=== PATIENT | female | born 1985 | race Caucasian/White ===

== ENCOUNTER 2018-10-27 06:08 | Inpatient (IN) | payer OTHER ==
[~2018-10-27] VITALS: Ht 165.1 cm; Wt 58.6 kg
[2018-10-27] VITALS (9 sets, daily range): BP systolic 104–116; BP diastolic 72–83; Ht 165.1 cm; Wt 58.6 kg
[2018-10-27] MEDS ORDERED: NOVOLIN 70/30 110 ML SC (06:17)
--- NOTE | 2018-10-27 06:25 | NUR ---
POC GLUCOSE 399
[2018-10-27 06:36] LABS: APPEARANCE HAZY (CLEAR); BILIRUBIN NEGATIVE (NEGATIVE); COLOR YELLOW (YELLOW); GLUCOSE 1000 mg/dL (NEGATIVE); KETONE MODERATE mg/dL (NEGATIVE); NITRITE NEGATIVE (NEGATIVE); PROTEIN NEGATIVE (NEGATIVE); SPECIFIC GRAVITY 1.015 (1.005-1.020); UROBILINOGEN NORMAL (NORMAL)
[2018-10-27 07:03] LABS: KETONE - SERUM SMALL mg/dL (NEGATIVE)
[2018-10-27 07:08] LABS: ALKALINE PHOSPHATASE 77 U/L (46-116); ALT (SGPT) 20 U/L (10-68); BILIRUBIN - TOTAL 0.48 mg/dL (0.2-1.3); CALC OSMOLALITY 282 mosm/kg (275-300); CALCIUM 9.2 mg/dL (8.5-10.1); CARBON DIOXIDE 22.4 mmol/L (21.0-32.0); CHLORIDE - SERUM 99 mmol/L (98-107); CREATININE - SERUM 0.7 mg/dL (0.6-1.3); GLUCOSE 368 mg/dL (74-106); POTASSIUM - SERUM 3.6 mmol/L (3.5-5.1); PROTEIN - SERUM 7.7 g/dL (6.4-8.2); SODIUM 134 mmol/L (136-145); UREA NITROGEN 12 mg/dL (7-18); eGFR NON AFRICAN AMERICAN > 90 mL/min (90-120)
[2018-10-27 07:14] LABS: EOSINOPHILS 5.2 % (0-7); HEMATOCRIT 43.7 % (36.0-48.0); HEMOGLOBIN 16.2 g/dL (12-16); IMMATURE GRANULOCYTES 0.3 % (0-5); LYMPHOCYTES 16.4 % (15-50); MCH 33.3 pg (26.0-34.0); MCHC 37.1 g/dL (31.0-37.0); MCV 89.9 fL (80.0-100.0); MONOCYTES 5.2 % (2-11); NEUTROPHILS 71.9 % (40-80); PLATELET COUNT 305 10x3/uL (130-400); RBC 4.86 10x6/uL (4.00-5.40); RDW 11.8 % (11.5-14.5); WBC 6.9 10x3/uL (4.8-10.8)
--- NOTE | 2018-10-27 09:12 | MORECARE ---
CASE MANAGEMENT DISCHARGE SUMMARY PATIENT: ROSSANA COTA UNIT: [id number] ADM DATE: 10/27/18 AGE: 33 : 85 SEX: F ROOM/BED: D.2314 AUTHOR: GOGO POOL PHYSICIAN: REFERRING PHYSICIAN: KENNY DON MD DATE OF SERVICE: 10/27/18 Discharge Plan Patient Name: ROSSANA COTA Facility: [facility]:[place] : 1985 Planned Disposition: Home Anticipated Discharge Date: 10/29/18 Discharge Date: Expected LOS: 2 Initial Reviewer: [email or web address] Initial Review Date: 10/27/2018 Generated: 10/27/18 10:12 am DCPIA - Discharge Planning Initial Assessment Updated by [email or web address]: Sandra Hall on 10/27/18 9:10 am * Is the patient Alert and Oriented? Yes * How many steps to enter\exit or inside your home? * PCP No PCP * [facility] [address] * Preadmission Environment Home with Family * ADLs Independent * Equipment Glucometer * Other Equipment checks sugar 6 x day. Denied problems getting diabetes supplies. Report she is compliant with diet and medications. * List name and contact numbers for known caregivers / representatives who currently or will assist patient after discharge: Fanny Cota - [facility] partner - [phone] * Verbal permission to speak to the caregivers and representatives has been obtained from the patient. Yes * Community resources currently utilized None * Additional services required to return to the preadmission environment? No * Can the patient safely return to the preadmission environment? Yes * Has this patient been hospitalized within the prior 30 days at any hospital? No Patient Name: ROSSANA COTA Page [id number] at 0912 All edits/amendments must be made on the electronic document DICTATION DATE: 10/27/18910 CLOUD SYSTEMS ADMINISTRATOR: RONNY 10/27/18910 RPT#: [id number] DC DATE: STATUS: ADM IN [facility] [address] [place] [address] END OF REPORT
--- NOTE | 2018-10-27 09:20 | NUR ---
PT RECEIVED. VSS. FAMILY AT BEDSIDE GIVEN UDPATE. WILL CONTINUE TO MONITOR
--- NOTE | 2018-10-27 09:25 | MORECARE ---
CASE MANAGEMENT DISCHARGE SUMMARY PATIENT: ROSSANA COTA UNIT: [id number] ADM DATE: 10/27/18 AGE: 33 : 85 SEX: F ROOM/BED: D.2314 AUTHOR: GOGO POOL PHYSICIAN: REFERRING PHYSICIAN: KENNY DON MD DATE OF SERVICE: 10/27/18 Discharge Plan Patient Name: ROSSANA COTA Facility: [facility]:[place] : 1985 Planned Disposition: Home Anticipated Discharge Date: 10/29/18 Discharge Date: Expected LOS: 2 Initial Reviewer: [email or web address] Initial Review Date: 10/27/2018 Generated: 10/27/18 10:25 am Comments DCP- Discharge Planning Updated by [email or web address]: Sandra Hall on 10/27/18 8:[address] Patient Name: ROSSANA COTA Admission Status: ER Accout number: [id number] Admission Date: 10-27-2018 : 1985 Admission Diagnosis: Attending: KENNY DON Current LOS: 1 Anticipated DC Date: 10-29-2018 Planned Disposition: Home Primary Insurance: [facility] Discharge Planning Comments: CM met with patient and her life partner, Fanny Cota, to complete initial dc planning assessment. CM educated patient on the CM role and verbal consent given by patient to complete assessment. CM verified patient's address, phone number, and emergency contact phone numbers. Patient lives at home with Fanny and reports she is independent in her care at home. She does not have a pcp but gets her diabetes prescriptions from the [facility]. She has made an appointment with Dr. Velasquez but is on a 3 month waiting list. Cm provided her the physician assistance call number for help finding a pcp. At discharge patient plans to return home with Fanny and feels this is a safe discharge. CM discussed availability of home health, rehab services, and medical equipment. Patient denied known discharge needs at this time. Patient reports Fanny will transport him/her home at time of discharge. CM will continue to follow and will assist as needed with dc plans/needs Metal Burnisher: Sandra Hall RN, [facility] DCPIA - Discharge Planning Initial Assessment Updated by [email or web address]: Sandra Hall on 10/27/18 9:10 am * Is the patient Alert and Oriented? Yes * How many steps to enter\exit or inside your home? * PCP No PCP * [facility] [address] * Preadmission Environment Home with Family * ADLs Independent * Equipment Glucometer * Other Equipment checks sugar 6 x day. Denied problems getting diabetes supplies. Report she is compliant with diet and medications. * List name and contact numbers for known caregivers / representatives who currently or will assist patient after discharge: Fanny Cota - life partner - [phone] * Verbal permission to speak to the caregivers and representatives has been obtained from the patient. Yes * Community resources currently utilized None * Additional services required to return to the preadmission environment? No * Can the patient safely return to the preadmission environment? Yes * Has this patient been hospitalized within the prior 30 days at any hospital? No Last DP export: 10/27/18 8:12 am Patient Name: ROSSANA COTA Page [id number] at 0925 All edits/amendments must be made on the electronic document DICTATION DATE: 10/27/18924 HAIRSPRING STUDDER: RONNY 10/27/18924 RPT#: [id number] DC DATE: STATUS: ADM IN [facility] [address] [place] [address] END OF REPORT
[2018-10-27] MEDS ORDERED: CIMETIDINE200 MG PO (09:45)
--- NOTE | 2018-10-27 11:00 | NUR ---
REASSESSMENT COMPLETE PER FLOW SHEET. VSS. NO NEW CHANGES WILL CONTINUE TO MONITOR
[2018-10-27 13:59] LABS: CALCIUM 7.9 mg/dL (8.5-10.1); CARBON DIOXIDE 23.7 mmol/L (21.0-32.0); CHLORIDE - SERUM 108 mmol/L (98-107); SODIUM 139 mmol/L (136-145); UREA NITROGEN 12 mg/dL (7-18)
--- NOTE | 2018-10-27 14:00 | NUR ---
ALESHIA AT BEDSIDE GIVEN UDPATE.
[2018-10-27 14:15] LABS: CALC OSMOLALITY 279 mosm/kg (275-300); CREATININE - SERUM 0.4 mg/dL (0.6-1.3); GLUCOSE 133 mg/dL (74-106); eGFR NON AFRICAN AMERICAN > 90 mL/min (90-120)
--- NOTE | 2018-10-27 19:00 | NUR ---
SHIFT ASSESSMENT COMPLETE. PT IS A&O X4 WITH NO COMPLAINTS OF PAIN OR DISCOMFORT AT THIS TIME. UP AD CINDY. VSS. S1S2 AUDIBLE, RR EVEN AND UNLABORED, CLEAR LUNG SOUNDS HEARD BILAT THROUGHOUT ALL LOBES. ABD SOFT AND NONTENDER TO TOUCH, BS ACTIVE X4. L AC PIV INFUSING NS @ 100 ML/HR AND INSULIN @ 4.7 UN/HR. REFRESHMENTS BROUGHT TO BEDSIDE, CALL LIGHT IN REACH, BED IN LOWEST POSITION. WILL CONT WITH POC.
[2018-10-27 20:22] LABS: CALC OSMOLALITY 279 mosm/kg (275-300); CALCIUM 8.1 mg/dL (8.5-10.1); CARBON DIOXIDE 22.2 mmol/L (21.0-32.0); CHLORIDE - SERUM 107 mmol/L (98-107); CREATININE - SERUM 0.4 mg/dL (0.6-1.3); GLUCOSE 155 mg/dL (74-106); MAGNESIUM - SERUM 1.8 mg/dL (1.8-2.4); POTASSIUM - SERUM 3.1 mmol/L (3.5-5.1); SODIUM 139 mmol/L (136-145); UREA NITROGEN 9 mg/dL (7-18); eGFR NON AFRICAN AMERICAN > 90 mL/min (90-120)
--- NOTE | 2018-10-27 21:00 | NUR ---
NO NEEDS AT THIS TIME. VSS. FSBS 120 TITRATING INSULIN PER PROTOCOL. CALL LIGHT IN REACH.
--- NOTE | 2018-10-27 23:00 | NUR ---
REASSESSMENT COMPLETE. NO CHANGES IN PT CONDITION. SHE STATES NO NEEDS AT THIS TIME. VSS. INSULIN GTT RATE CHANGE PER PROTOCOL. CALL LIGHT IN REACH, BED IN LOWEST POSITION. WILL CONT WITH POC.
[2018-10-28] VITALS (11 sets, daily range): BP systolic 88–132; BP diastolic 58–98
--- NOTE | 2018-10-28 01:00 | NUR ---
PT RESTING PEACEFULLY. NO SIGNS OF ACUTE DISTRESS NOTED. CALL LIGHT IN REACH.
--- NOTE | 2018-10-28 03:00 | NUR ---
REASSESSMENT COMPLETE. NO CHANGES IN PT CONDITION. VSS. INSULIN GTT RATE CHANGE PER PROTOCOL. CALL LIGHT IN REACH. WILL CONT WITH POC.
[2018-10-28 04:58] LABS: BASOPHILS 0.8 % (0-2); EOSINOPHILS 5.6 % (0-7); HEMATOCRIT 35.9 % (36.0-48.0); HEMOGLOBIN 13.1 g/dL (12-16); IMMATURE GRANULOCYTES 0.2 % (0-5); LYMPHOCYTES 38.3 % (15-50); MCH 33.2 pg (26.0-34.0); MCHC 36.5 g/dL (31.0-37.0); MCV 91.1 fL (80.0-100.0); MEAN PLATELET VOLUME 10.1 fL (7.4-10.4); MONOCYTES 7.6 % (2-11); NEUTROPHILS 47.5 % (40-80); RBC 3.94 10x6/uL (4.00-5.40); RDW 11.8 % (11.5-14.5)
--- NOTE | 2018-10-28 05:00 | NUR ---
PT RESTING PEACEFULLY AT THIS TIME. INSULIN RATE CHANGE TO 1.23 UN/HR. NO NEEDS AT THIS TIME. WILL CONT WITH POC.
[2018-10-28 05:21] LABS: CALC OSMOLALITY 283 mosm/kg (275-300); CALCIUM 7.7 mg/dL (8.5-10.1); CARBON DIOXIDE 22.3 mmol/L (21.0-32.0); CHLORIDE - SERUM 108 mmol/L (98-107); CREATININE - SERUM 0.4 mg/dL (0.6-1.3); GLUCOSE 159 mg/dL (74-106); MAGNESIUM - SERUM 1.8 mg/dL (1.8-2.4); SODIUM 142 mmol/L (136-145); UREA NITROGEN 7 mg/dL (7-18); eGFR NON AFRICAN AMERICAN > 90 mL/min (90-120)
[2018-10-28 05:36] LABS: POTASSIUM - SERUM 2.5 mmol/L (3.5-5.1)
[2018-10-28 05:47] LABS: PLATELET COUNT 241 10x3/uL (130-400); WBC 4.9 10x3/uL (4.8-10.8)
--- NOTE | 2018-10-28 05:56 | NUR ---
LABS REVIEWED. ELECTROLYTE PROTOCOL INITIATED. REPLACING K.
--- NOTE | 2018-10-28 07:34 | NUR ---
REPORT RECEIVED. ASSESSMENT COMPLETE PER FLOW SHEET. VSS. PT GIVEN BREAKFAST TRAY DENIES NEEDS WILL CONTINUE TO MONITOR
--- NOTE | 2018-10-28 09:00 | NUR ---
PT RESTING AT THIS TIME, VSS, CALL LIGHT IN REACH
[2018-10-28 09:36] LABS: CALCIUM 7.7 mg/dL (8.5-10.1); CARBON DIOXIDE 25.2 mmol/L (21.0-32.0); CHLORIDE - SERUM 109 mmol/L (98-107); CREATININE - SERUM 0.5 mg/dL (0.6-1.3); MAGNESIUM - SERUM 1.8 mg/dL (1.8-2.4); SODIUM 142 mmol/L (136-145); eGFR NON AFRICAN AMERICAN > 90 mL/min (90-120)
[2018-10-28 09:38] LABS: CALC OSMOLALITY 287 mosm/kg (275-300); GLUCOSE 236 mg/dL (74-106); POTASSIUM - SERUM 3.1 mmol/L (3.5-5.1); UREA NITROGEN 5 mg/dL (7-18)
--- NOTE | 2018-10-28 11:10 | NUR ---
REASSESSMENT COMPLETE PER FLOW SHEET. VSS. NO NEW CHANGES WILL CONTINUE TO MONITOR
--- NOTE | 2018-10-28 13:00 | NUR ---
DR DON AT BEDSIDE GIVEN UDPATE
--- NOTE | 2018-10-28 15:00 | NUR ---
NO NEEDS NOTED AT THIS TIME, WILL CON'T TO MONITOR
--- NOTE | 2018-10-28 17:15 | NUR ---
PT GIVEN DINNER TRAY ATE 100% WILL CONTINUE TO MONITOR
--- NOTE | 2018-10-28 19:00 | NUR ---
SHIFT ASSESSMENT COMPLETE. PT IS A&O X4 WITH NO COMPLAINTS OF PAIN OR DISCOMFORT AT THIS ITME. PERRLA, 3 MM, BRISK REACTION TO LIGHT. STRONG AND EQUAL HAND STONE LAYER AND FOOT PUMPS. S1S2 AUDIBLE, HR 78 NSR SHOWING ON ICU MONITORS. RR EVEN AND UNLABORED, CLEAR LUNG SOUNDS HEARD BILAT THROUGHOUT ALL LOBES, PT IS ON RA. ABD FLAT AND NON TENDER TO TOUCH, BS ACTIVE X4. L AC PIV S/L, DRESSING CDI. RADIAL AND PEDAL PULSES PALP. UP AD CINDY, NO SIGNS OF WEAKNESS WITH AMBULATION. CALL LIGHT IN REACH, BED IN LOWEST POSITION. WILL CONT CLOSE MONITORING IN ICU.
--- NOTE | 2018-10-28 21:10 | NUR ---
TRIED TO CALL REPORT TO [facility] II. SPOKE WITH CAITY FITZGERALD, WHO PROMPTLY HUNG THE PHONE UP BEFORE I COULD SPEAK WITH THE RECIEVING NURSE. WILL CALL BACK TO SPEAK TO THE NURSE WHO WILL BE RECIEVING REPORT.
--- NOTE | 2018-10-28 22:00 | NUR ---
PT RESTING IN BED WITH NO SIGNS OF ACUTE DISTRESS NOTED. VSS. WILL CONT WITH POC.
--- NOTE | 2018-10-28 22:55 | NUR ---
PT XFERED TO MED II. GAVE CHART TO RECIEIVING NURSE. PT TOLERATED WELL, NO SIGNS OF DISTRESS NOTED.
--- NOTE | 2018-10-28 23:00 | NUR ---
PATIENT RECEIVED FROM ICU. QUICK START COMPLETE. ASSESSMENT COMPLETE. PATIENT WITH NO COMPLAINTS AT THIS TIME. NO DISTRESS NOTED.
--- NOTE | 2018-10-29 03:09 | NUR ---
I have reviewed this patient and I concur with the Shift Assessment completed by the Licensed Practical Nurse today this shift.
--- NOTE | 2018-10-29 03:24 | NUR ---
PATIENT LAYING IN BED, EYES CLOSED, CHEST RISING AND FALLING. NO DISTRESS NOTED.
[2018-10-29 05:32] VITALS: BP 108/66
--- NOTE | 2018-10-29 05:58 | NUR ---
PATIENT LAYING IN BED. NO COMPLAINTS AT THIS TIME. NO DISTRESS NOTED.
[2018-10-29 06:15] LABS: HEMATOCRIT 35.7 % (36.0-48.0); HEMOGLOBIN 12.5 g/dL (12-16); IMMATURE GRANULOCYTES 0.2 % (0-5); LYMPHOCYTES 41.6 % (15-50); MCH 32.6 pg (26.0-34.0); MONOCYTES 7.2 % (2-11); PLATELET COUNT 213 10x3/uL (130-400); RBC 3.84 10x6/uL (4.00-5.40); RDW 12.3 % (11.5-14.5)
--- NOTE | 2018-10-29 07:10 | NUR ---
REPORT RECEVIED FROM SPEEDER FRAME TENDER AND PATIENT CARE ASSUMED. PATIENT IS AWAKE, ALERT AND ORIENTED X 4. PATIENT IS STABLE AND VSS. PATIENT DENIES ANY NEEDS OR PAIN. WILL CONTINUE WITH PLAN OF CARE. SR UP X 2 BED IN LOW POSITION AND CALL LIGHT IN REACH.
[2018-10-29 07:48] VITALS: BP 101/70
[2018-10-29 12:29] VITALS: BP 110/80
[2018-10-29] MEDS ORDERED: NOVOLIN 70/30 110 ML SC (13:08)
--- NOTE | 2018-10-29 13:09 | NUR ---
WAS SPEAKING WITH EJ FROM [employer]. THERE WAS QUESTION ABOUT HER SLIDING SCALE WITH THE "MIXED INSULIN". I EXTENDED THE PHARMACY LOOK UP FOR ONE YEAR AND IT DID NOT SHOW ANY INSULIN. SHE LISTED HER PHARMACY [facility] ([phone]) SO I CALLED AND SPOKE WITH [employer] (I DID NOT WRITE DOWN HER NAME). SHE CONFIRMED THAT THE PATIENT TAKES NOVOLIN 70/30, 10 UNITS IN THE AM AND 5 UNITS IN THE PM AND THAT THE LAST VIAL WAS PICKED UP ON 09/05/18. I HAVE UPDATED HER HOME MED ANNIA FOR THE DOCOTORS TO VIEW. THIS INFORMATION WAS RELAYED TO THE APPRENTICE JOCKEY.
--- NOTE | 2018-10-29 13:15 | NUR ---
Nutrition follow-up/consult for DM diet education: Visited with pt re: DM diet Pt reports she was diagnosed with DM in March 2018; states she has seen Dr. Velasquez and his dietitian for DM diet education. Pt reports she is taking 70/30 insulin using a sliding scale and has not been able to keep glucose under control. Pt is very familiar with CHO containing foods and was able to identify all CHO on her lunch tray. Reviewed DM diet with emphasis on consistent CHO from meal to meal. Pt with good understanding of information provided. It appears pts problem is not with meal planning but with medication. Provided pt with printed diet information and RDN name and phone number. Thank you for the consult.
--- NOTE | 2018-10-29 15:01 | NUR ---
PATIENT RESTING QUIETLY. WILL CONTINUE TO MONITOR.
--- NOTE | 2018-10-29 15:17 | NUR ---
ORDERS RECEIVED FOR DC.PATIENT IS STABLE AND VSS. WRITTEN AND VERBAL INSTRUCTIONS GIVEN . PATIENT VERBALZED UNDERSTANDING AND SIGNED WRITTEN INSTRUCTIONS. PATIENT TO FRONT DOOR VIA WC AND TO PRIVATE VEHICLE DRIVEN BY FRINED.
--- NOTE | 2018-10-30 09:10 | MORECARE ---
CASE MANAGEMENT DISCHARGE SUMMARY PATIENT: ROSSANA COTA UNIT: [id number] ADM DATE: 10/27/18 AGE: 33 : 85 SEX: F ROOM/BED: D.9390 AUTHOR: GOGO POOL PHYSICIAN: REFERRING PHYSICIAN: KENNY DON MD DATE OF SERVICE: 10/30/18 Discharge Plan Patient Name: ROSSANA COTA Facility: [facility]:[place] : 1985 Planned Disposition: Home Anticipated Discharge Date: 10/29/18 Discharge Date: 10/29/2018 Expected LOS: 2 Initial Reviewer: [email or web address] Initial Review Date: 10/27/2018 Generated: 10/30/18 10:09 am DCP- Discharge Planning Updated by [email or web address]: Sandra Hall on 10/27/18 8:[address] Patient Name: ROSSANA COTA Admission Status: ER Accout number: [id number] Admission Date: 10-27-2018 : 1985 Admission Diagnosis: Attending: KENNY DON Current LOS: 1 Anticipated DC Date: 10-29-2018 Planned Disposition: Home Primary Insurance: [facility] Discharge Planning Comments: CM met with patient and her life partner, Fanny Cota, to complete initial dc planning assessment. CM educated patient on the CM role and verbal consent given by patient to complete assessment. CM verified patient's address, phone number, and emergency contact phone numbers. Patient lives at home with Fanny and reports she is independent in her care at home. She does not have a pcp but gets her diabetes prescriptions from the [facility] outpatient [facility]. She has made an appointment with Dr. Velasquez but is on a 3 month waiting list. Cm provided her the physician assistance call number for help finding a pcp. At discharge patient plans to return home with Fanny and feels this is a safe discharge. CM discussed availability of home health, rehab services, and medical equipment. Patient denied known discharge needs at this time. Patient reports Fanny will transport him/her home at time of discharge. CM will continue to follow and will assist as needed with dc plans/needs Freight Loader: Sandra Hall RN, [facility] DCPIA - Discharge Planning Initial Assessment Updated by [email or web address]: Sandra Hall on 10/27/18 9:10 am * Is the patient Alert and Oriented? Yes * How many steps to enter\exit or inside your home? * PCP No PCP * [facility] [address] * Preadmission Environment Home with Family * ADLs Independent * Equipment Glucometer * Other Equipment checks sugar 6 x day. Denied problems getting diabetes supplies. Report she is compliant with diet and medications. * List name and contact numbers for known caregivers / representatives who currently or will assist patient after discharge: Fanny Cota - [facility] partner - [phone] * Verbal permission to speak to the caregivers and representatives has been obtained from the patient. Yes * Community resources currently utilized None * Additional services required to return to the preadmission environment? No * Can the patient safely return to the preadmission environment? Yes * Has this patient been hospitalized within the prior 30 days at any hospital? No Last DP export: 10/27/18 8:25 am Patient Name: ROSSANA COTA Page [phone] at 0910 All edits/amendments must be made on the electronic document DICTATION DATE: 10/30/18908 APPLICATION ARCHITECT: RONNY 10/30/18908 RPT#: [id number] DC DATE:10/29/18 STATUS: DIS IN [facility] [address] [place] [address] END OF REPORT
== END 2018-10-29 15:24 | disposition home or self-care (01) | DRG 639 ==
LOC: D.ER 06:08 → D.ICU 07:53 → D.M2 10-28 22:55
PROVIDERS: Family Medicine; ADMIT Internal Medicine Nephrology; ATTEND Internal Medicine Nephrology
DX: E11.10 Type 2 diabetes mellitus with ketoacidosis without coma (principal); Z79.4 Long term (current) use of insulin; K21.9 Gastro-esophageal reflux disease without esophagitis; D64.9 Anemia, unspecified; Z87.891 Personal history of nicotine dependence